=== PATIENT | female | born 1975 | race American Indian/Alaskan Native ===

== ENCOUNTER 2017-05-01 21:18 | Emergency (ER) | payer OTHER ==
--- NOTE | 2017-05-01 21:43 | Emergency Department Report ---
ED General Adult HPI - General Chief complaint: Headache Stated complaint: DIZZY Time Seen by Provider: 05/01/17 21:42 Source: family Mode of arrival: Ambulatory Limitations: No Limitations - History of Present Illness Initial comments: working on THE CAR IN THE [place] STARTED GETTING A HEADACHE FAMILY THINKS FOR MAYBE CARBON MONOXIDE EXPOSURE PATIENT PLACED ON 100%o2 SHE IS AWAKE AND ALERT AWAITING A CARBOXYHEMOGLOBIN, n/v +, ?diff w/ gait, ? joshi, awake and alert, nl finger to nose -: Gradual, unknown Location: head Radiation: non-radiation Consistency: intermittent Associated Symptoms: headaches, nausea/vomiting. denies: chest pain, cough, diaphoresis, loss of appetite, malaise, rash, seizure, shortness of breath, syncope, weakness - Related Data Allergies Allergy/AdvReac Type Severity Reaction Status Date / Time No Known Allergies Allergy Unverified 05/01/17 21:22 ED Review of Systems ROS: Stated complaint: DIZZY Other details as noted in HPI Comment: All other systems reviewed and negative Constitutional: malaise. denies: diaphoresis, fever, weakness Respiratory: denies: shortness of breath, SOB with exertion, SOB at rest, stridor, wheezing Cardiovascular: denies: chest pain, palpitations, dyspnea on exertion, orthopnea , edema, syncope, paroxysmal nocturnal dyspnea Gastrointestinal: nausea. denies: abdominal pain, diarrhea, constipation, hematemesis, melena, hematochezia Genitourinary: denies: urgency, dysuria, frequency, hematuria, discharge, abnormal menses Neurological: headache, weakness, abnormal gait. denies: numbness, paresthesias , confusion, vertigo Hematological/Lymphatic: denies: easy bruising ED Past Medical Hx - Past Medical History Previous Medical History?: No - Surgical History Past Surgical History?: No - Social History Smoking Status: Never Smoker Substance Use Type: None ED Physical Exam - General Limitations: No Limitations General appearance: alert - Head Head exam: Present: atraumatic, normocephalic - Eye Eye exam: Present: PERRL, EOMI - ENT ENT exam: Present: normal exam, normal orophraynx - Neck Neck exam: Present: normal inspection. Absent: tenderness, meningismus - Respiratory Respiratory exam: Present: normal lung sounds bilaterally. Absent: respiratory distress, wheezes, rales, rhonchi, stridor, chest wall tenderness, accessory muscle use, decreased breath sounds, prolonged expiratory - Cardiovascular Cardiovascular Exam: Present: regular rate, normal rhythm, normal heart sounds. Absent: rubs, gallop - GI/Abdominal GI/Abdominal exam: Present: soft. Absent: tenderness, guarding, rebound - External exam: Present: normal external exam. Absent: erythema, swelling, lesions, ecchymosis, bleeding - Extremities Exam Extremities exam: Present: normal inspection, normal capillary refill. Absent: pedal edema, joint swelling, calf tenderness - Back Exam Back exam: Present: normal inspection. Absent: CVA tenderness (L), muscle spasm , paraspinal tenderness, vertebral tenderness - Neurological Exam Neurological exam: Present: alert, oriented X3, CN II-XII intact. Absent: motor sensory deficit - Skin Skin exam: Present: warm. Absent: cyanosis, diaphoretic, erythema, urticaria, vesicles, petechiae ED Course Vital Signs 05/01/17 05/01/17 05/01/17 21:22 21:50 22:05 Temperature 98.1 F Pulse Rate 86 70 Respiratory 18 18 25 H Rate Blood Pressure 148/87 O2 Sat by Pulse 96 99 Oximetry ED Medical Decision Making - Lab Data Result diagrams: 05/01/17 21:31 05/01/17 21:31 - Medical Decision Making Patient was placed on 100 percent nonrebreather on arrival carboxyhemoglobin was 38.8 case was discussed with Dr. pena at [facility] does recommend transfer ER To ER for HBO therapy. This was after we did consult poison [facility] who did recommend patient to HBO, pt will be transferred Critical Care Time: Yes Critical care time in (mins) excluding proc time.: 45 Critical care attestation.: If time is entered above; I have spent that time in minutes in the direct care of this critically ill patient, excluding procedure time. ED Disposition Clinical Impression: Carbon monoxide poisoning Disposition: [id number]/TX-[id number] ANOTHER TYPE HLTHCARE Is pt being admited?: No Condition: Stable Time of Disposition: 23:17
[2017-05-01 22:03] LABS: Alanine Aminotransferase 20 units/L (7-56); Albumin 3.6 g/dL (3.9-5); BUN/Creatinine Ratio 24; Blood Urea Nitrogen 19 mg/dL (7-17); Calcium 8.7 mg/dL (8.4-10.2); Hemolysis Index 70
[2017-05-01 22:08] LABS: Hematocrit 41.5 % (30.3-42.9); Hemoglobin 14.1 gm/dl (10.1-14.3); Mean Corpuscular HGB Conc 34 % (30-34); Mean Corpuscular Hemoglobin 30 pg (28-32); Mean Corpuscular Volume 87 fl (79-97); Platelet Count 189 K/mm3 (140-440); Red Blood Count 4.76 M/mm3 (3.65-5.03); Red Cell Distribution Width 14.5 % (13.2-15.2)
[2017-05-01 22:51] LABS: Band Neutrophils # (Manual) 0.1 K/mm3; Total Cells Counted 100
[2017-05-01 22:52] LABS: RBC Morphology Normal
[2017-05-01 23:02] LABS: HCG Qualitative,Urine Negative (Negative)
[2017-05-01 23:06] LABS: Amphetamine Screen,Urine PRESUMPTIVE NEGATIVE; Benzodiazepines Screen,Urine PRESUMPTIVE NEGATIVE; Cannabinoid Screen,Urine PRESUMPTIVE NEGATIVE; Cocaine Screen,Urine PRESUMPTIVE NEGATIVE; Methadone Screen,Urine PRESUMPTIVE NEGATIVE; Opiate Screen,Urine PRESUMPTIVE NEGATIVE
--- NOTE | 2017-05-01 23:18 | XRay Report ---
FINAL REPORT PROCEDURE: XR CHEST 1V AP TECHNIQUE: Chest radiograph anteroposterior view. CPT 77533 HISTORY: co exposure COMPARISON: No prior studies are available for comparison. FINDINGS: Heart: Normal. Mediastinum/Vessels: Normal. Lungs/Pleural space: Normal. Bony thorax: No acute osseous abnormality. Life support devices: None. IMPRESSION: No acute cardiopulmonary abnormality.
[2017-05-02 00:09] LABS: Bilirubin,Urine NEG (Negative); Blood,Urine NEG (Negative); Color,Urine Yellow (Yellow); Mucus,Urine FEW /HPF; Protein,Urine <15 mg/dL mg/dL (Negative)
[2017-05-02 01:59] VITALS: BP 121/65
== END 2017-05-02 02:01 | disposition home or self-care (01) ==
LOC: ED 21:18
DX: T58.91XA Toxic effect of carbon monoxide from unspecified source, accidental (unintentional), initial encounter (principal); R51 Headache; R11.2 Nausea with vomiting, unspecified; Z79.899 Other long term (current) drug therapy; Y92.89 Other specified places as the place of occurrence of the external cause
CPT/HCPCS: 36415; 71045; 80053; 80307; 81001; 81025; 82375; 84484; 85007; 85025; 93005; 93010